=== PATIENT | male | born 1960 | race Caucasian/White ===

== ENCOUNTER 2023-10-04 06:06 | Day surgery (SDC) | payer MEDICARE, BC, OTHER, SELFPAY ==
[2023-10-04] VITALS (31 sets, daily range): BP systolic 92–147; BP diastolic 57–78; PULSE 70–87; RESP 14–20; TEMP 35.9–36.7; O2SAT 88–99; BMI 33.5
[2023-10-04] MEDS: LACTATED RINGERS 1000 ML 1,000 ML 100 ML IV ×2 (05:55→09:15)
--- OUTSIDE RECORDS SUMMARY | 2023-10-04 06:10 | XMS_ITS | Continuity of Care Document ---
Author Name Unknown Organization ASHLY Morrell Address [address] [facility] [address] [place] [address] Phone Care Team Providers Care Care Manager Name Role Phone Unavailable Unavailable Unavailable Allergies, Adverse Reactions, Alerts Substance Reaction Status Criticality CYCLOBENZAPRINE HCL Body Aches Active No Infor mation CYCLOBENZAPRINE HCL Body Aches Active No Infor mation Medications Medication Instructions Dosage Effective Dates (start - stop) Status Comments AMITRIPTYLINE HCL (unknown strength) take 1 Tablet by oral route every day Not Available - Active ibuprofen 200 mg tablet Take 2 tablets by oral route daily as needed - Active Tylenol Extra Strength 500 mg tablet take 2 tablets by oral route daily as needed - Active metaxalone 800 mg tablet take 1 tablet by oral route 3 times every day as needed 800 MG - Active omeprazole 20 mg tablet,delayed release Take 1 tablet by oral route daily - Active Lyrica 150 mg capsule take 1 capsule by oral route 3 times every day 150 MG - Active Celebrex 200 mg capsule take 1 capsule by oral route 2 times every day - Active aspirin 81 mg chewable tablet chew 1 tablet by oral route every day 81 MG - Active Procedures Procedure Date Depomedrol 80mg Marcaine 30ml Intercostal Block Ultrason Guidan Needle Bx-rad 4 Offic/outpt E&m Estab Low-mod 4 Intercostal Block Ultrason Guidan Needle Bx-rad 4 Depomedrol 80mg Marcaine 30ml [place] Only Sterile Any Size 4 QA DONE Offic Cons New/estab Mod-hi 60 14 QA DONE Advance Directives Directive Yes / No Effective Date File Name No Information Encounters Encounter Description Practice Location Reason(s) For Visit Diagnoses Date Provider Providers Copied on Encounter SLOANE Morrell, [address] [facility] [address], [place], [place], [id number], [place] tel:[phone] [facility] No Information 4 No Information Referring Provider: José Miguel Perry, [address], [place], [address]. tel:[phone] SLOANE Morrell, [address] [facility] [address], [place], [address], [place] tel:[phone] [facility] No Information 4 Emma Canales. [address] [place], [address], [place]. tel:[phone] Referring Provider: José Miguel Perry, [address], [place], [address]. tel:[phone] Offic/outpt E&m Estab Low-mod SLOANE Morrell, [address] [facility] [address], [place], [place], [address], [place] tel:[phone] [facility] No Information 4 Jose Garcia. [address] [facility] [address], [place], [place], [address], [place]. tel:[phone] Referring Provider: José Miguel Perry, [address], [place], [address]. tel:[phone] SLOANE Morrell, [address] [facility] [address], [place], [address], [place] tel:[phone] [facility] No Information 4 Feliciano Beaver. [address] [facility], [place], [place], [address], [place]. tel:[phone] Referring Provider: José Miguel Peryr, [address], [place], [address]. tel:[phone] [facility], [address] [facility] [address], [place], [place], [address], [place] tel:[phone] [facility] No Information 4 Emma Canales. [address] [place], [address], [place]. tel:[phone] Referring Provider: José Miguel Perry, [address], [place], [address]. tel:[phone] Offic Cons New/estab Mod-hi 60 [facility], [facility], [address] [facility] [address], [place], [place], [address], [place] tel:[phone] [facility] No Information 4 Jose Garcia. [address] [facility] [address], [place], [address], [place]. tel:[phone] Referring Provider: José Miguel Perry, [address], [place], [address]. tel:[phone] Family History Family Member Type Diagnosis Age At Onset No Information Payers Payer name Insurance type Covered libertarian ID Authorpreston baum(s) [facility] [id number] Social History Type Description Quantity Date Captured Comments Sex Male Smoking Status No Information Chief Complaint And Reason For Visit No Information Reason For Referral Reason For Referral No Information History Of Present Illness Encounter Date Complaint History Of Prese nt Illness No Information Functional Status Date Functional Assessmen t No Information Instructions Date Instruction Additional Infor mation No Information Assessments Type Assessment Date No Information Patient Care Teams Name Effective Dates (start - stop) Status Members No Information
--- OUTSIDE RECORDS SUMMARY | 2023-10-04 06:10 | XMS_ITS | Continuity of Care Document ---
Author Name Unknown Organization [facility] Address [address] [place] [address] Phone Care Team Providers Care Auto Apprentice Mechanic Name Role Phone John Khan MD Unavailable Unavailable Allergies, Adverse Reactions, Alerts Substance Reaction Status Criticality carbamazepine Skin rash Active No Information celecoxib Active No Information CYCLOBENZAPRINE HCL hyperactive Active No Infor mation Medications Medication Instructions Dosage Effective Dates (start - stop) Status Comments BUDESONIDE-FORMOTEROL FUMARATE (unknown strength) Not Available - Active CYMBALTA (unknown strength) Not Available - Active AMLODIPINE BESYLATE (unknown strength) Not Available - Active ASPIRIN EC (unknown strength) Not Available - Active ATORVASTATIN CALCIUM (unknown strength) Not Available - Active LISINOPRIL (unknown strength) Not Available - Active METAXALONE (unknown strength) Not Available - Active OMEPRAZOLE (unknown strength) Not Available - Active LYRICA (unknown strength) Not Available - Active Procedures Procedure Date Office/Outpatient Visit,Est, Mod 2021 Office/Outpatient Visit,Est, Mod 2020 X-Ray Exam Lower Spine 2-3 Views 2020 OFFICE/OUTPATIENT VISIT EST Phone Office/Outpatient Visit,Est, Mod 2020 X-Ray Exam Lower Spine 2-3 Views 2020 Office/Outpatient Visit,Est, Mod 2020 X-Ray Exam Lower Spine 2-3 Views 2020 Postop Followup Visit X-Ray Exam Lower Spine 2-3 Views 2020 Postop Followup Visit X-Ray Exam Lower Spine 2-3 Views 2020 TLIF - Includes PSF at the same level - PA TLIF - Additional Level(s) Includes PSF at the same level - PA Posterior Instrumentation, 3-6 Segments - PA PEEK/ Cage/ Implant, For Interbody Fusio n - PA TLIF - Includes PSF at the same level De TLIF - Additional Level(s) Includes PSF at the same level Posterior Instrumentation, 3-6 Segments PEEK/ Cage/ Implant, For Interbody Fusio n Autograft, From Same Incision 0 Allograft, Morcelized, and/or BMP Office/Outpatient Visit,Est, Mod 2019 Office/Outpatient Visit,Est, Mod 2018 Office/Outpatient Visit,New, Mod 2018 X-Ray Exam Of Neck Spine, 4+ Views Advance Directives Directive Yes / No Effective Date File Name No Information Encounters Encounter Description Practice Location Reason(s) For Visit Diagnoses Date Provider Providers Copied on Encounter [facility], [address], [facility] [place] [place], [id number], [place] tel:[phone] [facility] No Information 3 Bill Rowell [facility] [place], [address] [place] [address] [address], [place], [place], [address] , [place]. [phone] Office/Outpat ient Visit,Est, Mod [facility], [address], [facility] [place], [id number], [place] tel:[phone] [facility] Arthrodesis status 2 Bill Rowell [facility], [address] [place] [address] [address], [place], [place], [address] , [place]. [phone] Referring Provider: John Khan, [facility] [address], [place], [address] . tel:[phone] Office/Outpat ient Visit,Est, Mod [facility], [address], [place], [address], [place] tel:[phone] [facility] Arthrodesis status 1 Mehbod DianerKassandra [facility] [place], [address], [place], [address] , [place]. tel:[phone] Referring Provider: John Khan, [facility] [address], [place], [address] . tel:[phone] OFFICE/OUTPAT IENT VISIT EST Phone [facility], [address], [place], [address], [place] tel:[phone] [facility] [place] No Information Jan- 1 Daron Panchal. [address] [place] [address] [address], [place], [address] , [place]. tel:[phone] Referring Provider: John Khan, [facility] [address], [place], [address] . tel:[phone] Office/Outpat ient Visit,Est, Mod [facility], [address], [place], [address], [place] tel:[phone] [facility] [place] Arthrodesis status 1 Mehbod [facility], [address], [place], [address] , [place]. tel:[phone] Referring Provider: John Khan, [facility] [place] [address], [place], [address] . tel:[phone] Office/Outpat ient Visit,Est, Mod [facility], [address], [place], [address], [place] tel:[phone] [facility] Encounter for other specified surgical aftercare 1 Mehbod [facility], [address], [place], [address] , [place]. tel: [phone] Referring Provider: John Khan, [facility] [address], [place], [address] . tel:[phone] [facility], [address], [place], [address], [place] tel:[phone] [facility] [place] Encounter for other specified surgical aftercare 1 Eckroth Abdulkadir. [address], [place], [place], [address] , [place]. tel: [phone] Referring Provider: John Khan, [facility] [address], [place], [address] . tel:[phone] [facility], [address], [place], [address], [place] tel:[phone] [facility] [place] Encounter for other specified surgical aftercare 1 Bill Rowell [facility], [address], [place], [address] , [place]. tel: [phone] Referring Provider: John Khan, [facility] [address], [place], [address] . tel:[phone] [facility], [address], [place], [address], [place] tel:[phone] [facility] No Information 0 Eckroth Abdulkadir. [address], [place], [address] , [place]. tel: [phone] Referring Provider: John Khan [facility] [address], [place], [address] . tel:[phone] [facility], [address], [place], [address], [place] tel:[phone] [facility] No Information Dec-0 8-202 0 Mehbod Amir. [facility], [address], [facility] [place], [address] , [place]. [phone] Referring Provider: John Khan, [facility] [address], [place], [address] . tel:[phone] Office/Outpat ient Visit,Est, Mod [facility], [address], [place], [address], [place] tel:[phone] [facility] Spinal stenosis, lumbar region with neurogenic claudicationS pondylolisthe sis, lumbar region Sep-1 0-202 0 Mehbod Amir. [facility], [address], [facility], [address] , [place]. tel:[phone] Referring Provider: John Khan, [facility] [address], [place], [address] . tel:[phone] Office/Outpat ient Visit,Est, Mod [facility], [address], [place], [address], [place] tel:[phone] [facility] Spondylolisth esis, lumbar regionSpinal stenosis, lumbar region NOS Sep-1 6-201 9 Mehbod Amir. [facility], [address], [facility] [place], [address] , [place]. [phone] Referring Provider: John Khan, [facility] [address], [place], [address] . tel:[phone] Office/Outpat ient Visit,New, Mod [facility], [address], [place], [address], [place] tel:[phone] [facility] Radiculopathy , cervical region Apr-0 1-201 9 Mehbod Amir. [facility], [address] [place] [address] [address], [place], [place], [address] , [place]. tel:[phone] Referring Provider: José Miguel Perry, [address] [place], [place], [address]. tel:[phone] Family History Family Member Type Diagnosis Age At Onset No Information Payers Payer name Insurance type Covered green party ID Authorpreston baum(s) [facility] [id number] [place] [id number] Social History Type Description Quantity Date Captured Comments Sex Male Smoking Status No Information Chief Complaint And Reason For Visit No Information Reason For Referral Reason For Referral No Information Plan Of Treatment Date Type Action Status Future Order: Radiology Order Ce rvical 4 Or 5 Views (CMIN4), Ordered on: Ordered History Of Present Illness Encounter Date Complaint History Of Prese nt Illness No Information Functional Status Date Functional Assessmen t No Information Instructions Date Instruction Additional Infor mation No Information Assessments Type Assessment Date No Information Patient Care Teams Name Effective Dates (start - stop) Status Members No Information
--- OUTSIDE RECORDS SUMMARY | 2023-10-04 06:10 | XMS_ITS | Encounter Summary ---
Author Name Unknown Organization [facility] Address [address] [place] [address] Care Team Providers Care Terminal Worker Name Role Phone Nancy Zhao APRN MARKETING STRATEGY ANALYST Unavailable [phone] Yuan Veras MD Unavailable Jovani Thorne DO Primary Care Provider [phone] Michael Soto MD Unavailable Yuan Veras MD Unavailable Encounter Details Date Type Department Care Team (Late st Contact Info) Description 03/22/2023 [facility] Medical Advice [facility] Verification [facility] Social History Tobacco Use Types Packs/Day Years Used Date Smoking Tobacco: Never Smokeless Tobacco: Never Alcohol Use Standard Drinks/Week Comments Never 0 (1 standard drink = 0.6 oz pur e alcohol) PHQ-2 Answer Date Recorded PHQ-2 Score 1 11/15/2022 Adolescent Education Answer Date Record ed Getting School Help Needed Not on file 02/10 Sex and Gender Information Value Date Recorded Sex Assigned at Not on file Gender Identity Not on file Sexual Orientation Not on file COVID-19 Exposure Response Date Recorded In the last 10 days, have yo u been in contact with someone who was confirmed or suspected to have Coronavirus/COVID-19? No / Unsure 02/21/2023 11:15 AM CDT documented as of this encounter Plan of Treatment Not on file documented as of this encounter Visit Diagnoses Not on filedocumented in this encounter Care Teams Terminal Worker Relationship Specialty Start Date End Date [place] [address] PCP - General 11/15/22 Nancy Zhao APRN MARKETING STRATEGY ANALYST [facility] NE[facility]OLOG[facility] [place] [address] Referring Physician 06/14/22 Yuan Veras MD [address] [place] [address] Neurology 06/14/22 Michael Soto MD [address] [place] [address] Assigned Neuroscience Provider 02/24/23 05/04/23 Yuan Veras MD [address] [place] [address] Assigned Neuroscience Provider 05/05/23 documented as of this encounter
--- OUTSIDE RECORDS SUMMARY | 2023-10-04 06:10 | XMS_ITS | Referral Summary ---
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) Celecoxib Other (See Comments) Medium 01/29/2020 Elevated creatinine Medications Medication Sig Dispensed Refills Start Date End Date Status Respiratory Therapy Supplies (CARETOUCH 2 CPAP [employer]) [facility] CPAP machine for home use at pressure 6.4-9cm/H2O, nasal pillow mask x1/3month with nasal pillows x 2/mo 06/02/2022 Active amLODIPine (NORVASC) 5 MG tablet Take 1 tablet by mouth daily 06/22/2022 Active atorvastatin (LIPITOR) 40 MG tablet Take 1 tablet by mouth daily 11/08/2021 Active DULoxetine (CYMBALTA) 60 MG capsule 12/23/2021 Active fluticasone (FLONASE) 50 MCG/ACT nasal spray [place] 2 sprays in nostril as needed 10/30/2022 Active lisinopril (ZESTRIL) 20 MG tablet Take 1 tablet by mouth daily 06/22/2022 Active metaxalone (SKELAXIN) 800 MG tablet Take 800 mg by mouth 06/16/2022 Active omeprazole (PRILOSEC) [address] capsule Take 20 mg by mouth 06/05/2022 Active pregabalin (LYRICA) 150 MG capsule Take 150 mg by mouth 06/02/2022 Active multivitamin (CENTRUM SILVER) tablet Take 1 tablet by mouth daily Active ASPIRIN 81 PO Take 81 mg by mouth daily Active tiotropium (SPIRIVA) 18 MCG inhaled capsule Inhale 18 mcg into the lungs 04/05/2023 Active albuterol (PROAIR HFA/PROVENTIL HFA/VENTOLIN HFA) 108 (90 Base) MCG/ACT inhaler Inhale 1-2 puffs into the lungs 03/27/2023 Active Social History Tobacco Use Types Packs/Day Years Used Date Smoking Tobacco: Never Smokeless Tobacco: Never Tobacco Cessation:Counseling Given: Not Answered Alcohol Use Standard Drinks/Week Comments Never 0 (1 standard drink = 0.6 oz pur e alcohol) PHQ-2 Answer Date Recorded PHQ-2 Score 1 11/15/2022 Adolescent Education Answer Date Record ed Getting School Help Needed Not on file 02/10 Sex and Gender Information Value Date Recorded Sex Assigned at Not on file Gender Identity Not on file Sexual Orientation Not on file Last Filed Vital Signs Vital Sign Reading Time Taken Comments Blood Pressure 125/82 05/02/2023 11:22 AM TEST FIXTURE ASSEMBLER Pulse 90 05/02/2023 11:22 AM TEST FIXTURE ASSEMBLER Temperature - - Respiratory Rate - - Oxygen Saturation 91% 05/02/2023 11:22 AM TEST FIXTURE ASSEMBLER Inhaled Oxygen Concentration - - Weight 104.3 kg (230 lb) 05/02/2023 11:22 AM TEST FIXTURE ASSEMBLER Height 177.8 cm (5' 10) 11/15/2022 8:58 AM CDT Body Mass Index 33 11/15/2022 8:58 AM CDT Plan of Treatment Not on file Care Teams Marine Mechanic Relationship Specialty Start Date End Date Jovani Thorne DO [facility] [place] [address] PCP - General 11/15/22 Nancy Zhao, MAGNETIC GRINDER OPERATOR EYEGLASS FRAME TRUER [facility] [address] [place] [address] Referring Physician 06/14/22 Yuan Veras MD [address] [address] Neurology 06/14/22 Yuan Veras MD [address] [address] Assigned Neuroscience Provider 05/05/23
--- OUTSIDE RECORDS SUMMARY | 2023-10-04 06:10 | XMS_ITS | Clinical Summary ---
Author Name Unknown Organization [employer] [facility] Address [place], [place] [address] Care Team Providers Care Data Power Consultant Name Role Phone Jovani Thorne DO Primary Care Provider [phone] Allergies Active Allergy Reactions Criticality Noted Date Comments Celecoxib Other - Describe In Comment Field Medium 01/29/2020 Elevated creatinine Cyclobenzaprine Behavioral Disturbances,Other - Describe In Comment Field 03/06/2008 Budesonide-Formoterol Bronchospasm 05/09/2022 Carbamazepine Rash 10/27/2021 DRESS syndrome (drug reaction with eosinophils and systemic symptoms) Medications Medication Sig Dispensed Refills Start Date End Date Status aspirin (ECOTRIN) 81 mg enteric coated tabletIndications:H ypertensive pulmonary arterial disease (HC) Take 1 Tablet (81 mg) by mouth once daily. 0 1 Active albuterol HFA (ProAir HFA) 90 mcg/actuation inhalerIndications: Bronchitis with bronchospasm Inhale 1-2 Puffs by mouth every 6 hours if needed for Shortness of Breath 1st choice. 1 Each 3 Active CPAPIndications:Obs tructive sleep apnea CPAP machine for home use at pressure 6.4-10cm/H2O, nasal pillow mask x1/3month with nasal pillows x 2/mo 1 Each 3 Active DULoxetine (CYMBALTA) 30 mg Delayed-release capsuleIndications: Depression, recurrent (HC) Take 3 Capsules (90 mg) by mouth once daily. 270 Capsule 3 4 Active omeprazole (PRILOSEC) 20 mg Delayed-Release capsuleIndications: NUD (nonulcer dyspepsia) Take 1 Capsule (20 mg) by mouth two times daily before meals. 180 Capsule 3 4 Active tiotropium-olodater oL (STIOLTO RESPIMAT) 2.5-2.5 mcg/actuation inhalerIndications: COPD mixed type (HC) Inhale 2 Puffs by mouth once daily. 12 g 3 4 Active lisinopriL (PRINIVIL; ZESTRIL) 20 mg tabletIndications:E ssential hypertension,Hypert ensive pulmonary arterial disease (HC) TAKE 1 TABLET BY MOUTH DAILY 90 Tablet 2 4 Active Metaxalone (SKELAXIN) 800 mg tabletIndications:P ain in scapula,Rib pain TAKE 1 TABLET(800 MG) BY MOUTH THREE TIMES DAILY 270 Tablet 4 Active pregabalin (LYRICA) 150 mg capsuleIndications: Rib pain TAKE 1 CAPSULE(150 MG) BY MOUTH THREE TIMES DAILY 90 Capsule 4 Active cholecalciferol, Vitamin D3, 5,000 unit tab tabletIndications:V itamin D deficiency TAKE 1 TABLET BY MOUTH EVERY DAY 90 Tablet 2 4 Active amLODIPine (NORVASC) 5 mg tabletIndications:E ssential hypertension,Hypert ensive pulmonary arterial disease (HC) TAKE 1 TABLET BY MOUTH EVERY DAY 90 Tablet 2 4 Active atorvastatin (LIPITOR) 40 mg tabletIndications:H yperlipidemia, unspecified hyperlipidemia type TAKE 1 TABLET(40 MG) BY MOUTH EVERY DAY 90 Tablet 3 4 Active atorvastatin (LIPITOR) 40 mg tabletIndications:H yperlipidemia, unspecified hyperlipidemia type TAKE 1 TABLET(40 MG) BY MOUTH EVERY DAY 90 Tablet 2 3 09/27/19 24 Discontinued amLODIPine (NORVASC) 5 mg tabletIndications:E ssential hypertension,Hypert ensive pulmonary arterial disease (HC) TAKE 1 TABLET BY MOUTH EVERY DAY 90 Tablet 2 3 09/11/19 24 Discontinued cholecalciferol, Vitamin D3, (Vitamin D-3) 5,000 unit tab tabletIndications:V itamin D deficiency Take 1 Tablet (5,000 units) by mouth once daily. 90 Tablet 4 09/06/19 24 Discontinued pregabalin (LYRICA) 150 mg capsuleIndications: Rib pain TAKE 1 CAPSULE(150 MG) BY MOUTH THREE TIMES DAILY 90 Capsule 4 09/06/19 24 Discontinued Active Problems Problem Noted Date Diagnosed Date Depression, recurrent 02/02/2023 Vocal cord disease 10/26/2022 COPD mixed type 07/24/2022 DRESS syndrome 11/23/2021 Drug reaction 11/08/2021 Neuropathic pain 11/01/2021 Calcaneal fracture 10/20/2021 Spinal stenosis of lumbar re gion without neurogenic claudication 04/27/2020 DDD (degenerative disc disease), lumbar 04/01/20 Prediabetes 12/31/2019 Chronic left shoulder pain 12/31/2019 Right ventricular dilation 09/16/2019 Essential hypertension 07/01/2018 Essential tremor 04/03/2018 Overview: Per neurology-01/29/2018 Worsened due to his accident from 2006. 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 Encounters Date Type Department Care Team Description 09/26/[address] [address] Jovani Thorne DO Refill Request (Atorvastatin) 09/24/2023 11:00 AM CDT Preop Visit [address] [address] Jovani Thorne DO Preoperative Exam (Dr[facility] - 10/04/2023 - Hip LEFT total) 09/24/2023 Travel 09/22/2023 Travel 09/11/[address] [address] Jovani Thorne DO Refill Request (Amlodipine) 09/05/[address] [address] Dominique Thorne Josy, Refill Request (Cholecalciferol (Vitamin D3)) 09/05/[address] [address] Jovani Thorne DO Refill Request (Pregabalin) 08/10/[address] [address] Jovani Thorne DO Refill Request (Metaxalone) 07/26/[address] [address] Michelle Wayne PA Refill Request (Pregabalin) 07/26/[address] [address] José Miguel Blanco MD Results (Femur X-ray ) 07/25/2023 10:00 AM CONSTRUCTION DRIVER Ancillary Procedure [address] [address] 07/25/2023 9:25 AM CONSTRUCTION DRIVER Procedure Only [facility] [address] [place] [address] [address] José Miguel Blanco MD Procedure (WC ultrasound guided injection ... 07/25/[address] [facility] [address] [place] [address] [address] José Miguel Blanco MD <No scans attached> 07/24/2023 Travel 07/20/2023 10:00 AM CONSTRUCTION DRIVER Pharmacist Medication Management [facility] [address] [place] [address] Makayla Jaeger, Maya Pharmacist Medication Management (CMR follow-up - provider referral - inhaler options) 07/19/2023 Travel from Last 3 Months Immunizations Name Administration Dates Next Due COVID-19 vaccine (Smart Checkout-Bio NTech 30mcg/0.3mL) 12YO+ BIVALENT PF, MDV 05/26/2022 COVID-19 vaccine (Smart Checkout-Bio NTech 30mcg/0.3mL) PF, MDV 09/07/2020,08/17/2020 Influenza, IIV3 (Age >=3 years) 02/19/2020,02/14,02/23/2010 Influenza, IIV4 03/23/2023,02/01/2021,04/07/2014 Influenza, IIV4 (=>6mos) MDV 03/06/2020 Influenza,CCIIV4 PRESERV FREE 02/23/2022 Pneumococcal Conj 20-valent (Prevnar 20) 023 RSV, Bivalent Vaccine Recons tituted (Abrysvo 120MCG/0.5mL) 04/19/2023 Td (Age >=7 Years) 05/27/2002 Tdap 04/07/2014 Zoster (Shingrix-RZV, recombinant) 09/11/2018, Family History Medical History Relation Name Comments Cancer Brother 2 lung - non smok er Cancer-prostate Father Diabetes Father Other Father at 84 - pr obable flu Other Mother CVA at 82 Relation Name Status Comments Brother 1 Brother 2 Father Mother Social History Tobacco Use Types Packs/Day Years Used Date Smoking Tobacco: Never Smokeless Tobacco: Never Tobacco Cessation:Counseling Given: Yes Alcohol Use Standard Drinks/Week Comments Not Currently 0 (1 standard drink = 0.6 oz pur e alcohol) none PHQ-2 Answer Date Recorded PHQ-2 TOTAL SCORE 0 06/12/2023 Social Connections Answer Date Recorded Frequency of Communication with Friends and Fami ly 0 05/10/2023 Financial Resource Strain Answer Date R ecorded Difficulty of Paying Living Expenses 3 05/10/2023 Difficulty of Paying Living Expenses Not on file 05/10/2023 Food Insecurity Answer Date Recorded Worried About Running Out of Food in the Last Ye ar 1 05/10/2023 Transportation Needs Answer Date Record ed Lack of Transportation (Medical) 1 05/10/2023 Housing Stability Answer Date Recorded Unable to Pay for Housing in the Last Year 1 05/10/2023 Sex and Gender Information Value Date Recorded Sex Assigned at Not on file Gender Identity Not on file Sexual Orientation Not on file Obstetrics History Last Filed Vital Signs Vital Sign Reading Time Taken Comments Blood Pressure 124/71 09/24/2023 11:06 AM CDT Pulse 82 09/24/2023 11:06 AM CDT Temperature 36.7 ??C (98.1 ??F) 07/25/2023 9:23 AM CS T Respiratory Rate 20 05/03/2022 1:00 PM CONSTRUCTION DRIVER Oxygen Saturation 94% 09/24/2023 11: 06 AM CDT Inhaled Oxygen Concentration - - Weight 106.4 kg (234 lb 9.6 oz) 024 11:06 AM CDT Height 175.3 cm (5' 9) 06/05/2023 7:42 AM CONSTRUCTION DRIVER Body Mass Index 34.64 06/05/2023 7:42 AM CONSTRUCTION DRIVER Plan of Treatment Health Maintenance Due Date Last Done Comments Influenza for age 50-64 01/20/2024 03/23/20, 02/23/2022, 02/01/2021, Additional history exists Tetanus booster 04/07/2024 04/07/2014, 05/27/2002 BMI (ht and wt on same day) for age 18+ 06/05/2024 06/05/2023, 11/02/2022, 10/26/2022, Additional history exists Depression screening for age 12+ 06/13/2024 06/13/2023, 06/12/2023, 06/08/2023, Additional history exists Colonoscopy through age 75 09/09/202509/09, 09/10/2015, 04/09/2015 Lipids for age 45-75 10/27/2027 10/26/2022, 11/08/2021, 09/09/2020, Additional history exists Tdap Completed 04/07/2014 Zoster (shingles) series for age 50+ Completed 09/11/2018, 07/01/2018 HIV for age 15-65 Completed 10/25/2021 Hepatitis C screening for ag e 18-79 Completed 10/28/2021, 07/08/2014 Pneumococcal series for age 6-64 Completed 10/27/19 COVID-19 vaccine series Completed 05/27/19, 05/26/2022, 02/23/2022, Additional history exists Medical Devices Implanted Type Area Embedder Device Identifier Shelf Expiration Date Model / Serial / Lot [id number] 1-4mm 60cc Medtronic Fine Canclls Freeze Dried Implanted:Qty: 1 on 04/27/2020 by John Khan MD at [facility] Explanted:at [facility] (Quantity not on file) N/A: Spine Medtronic Spine/Ortho 07/14/2024 [id number] / [id number] / [id number] Matrix 6cc Nazia Dbf Putty Dbm Implanted:Qty: 1 on 04/27/2020 by John Khan MD at [facility] Explanted:at [facility] (Quantity not on file) N/A: Spine Medtronic Spine/Ortho 02/15/2022 [id number] / [id number] / Spacer Lmbr [id number] Zyston Convex Stra Plif - [id number] Implanted:Qty: 1 on 04/27/2020 by John Khan MD at [facility] N/A: Spine Sussy Biomet [id number]# / / [id number] Spacer Lmbr [id number] Zyston Convex Stra Plif - [id number] Implanted:Qty: 1 on 04/27/2020 by John Khan MD at [facility] N/A: Spine Sussy Biomet 11/20/2022 [id number] / / [id number] Screw Lmbr 5.5-6mm Vitality Torque - [id number] Implanted:Qty: 6 on 04/27/2020 by John Khan MD at [facility] N/A: Spine Sussy Biomet Spine [id number] 01# / / Neeraj Lmbr 75x5.5mm Vitality Cvd Titnm - [id number] Implanted:Qty: 1 on 04/27/2020 by John Khna MD at [facility] N/A: Spine Sussy Biomet Spine [id number] 12# / / Neeraj Lmbr 80x5.5mm Vitality Cvd Titnm - [id number] Implanted:Qty: 1 on 04/27/2020 by John Khan MD at [facility] N/A: Spine Sussy Biomet Spine [id number] 13# / / Screw Vital Polyaxial 7.5 X 45 Implanted:Qty: 1 on 04/27/2020 by John Khan MD at [facility] N/A: Spine [id number] / / Description:SCREW VITAL POLY AXIAL 7.5 X 45 Screw Vital Polyaxial 7.5 X 50 Implanted:Qty: 5 on 04/27/2020 by John Khan MD at [facility] N/A: Spine [id number] / / Description:SCREW VITAL POLY AXIAL 7.5 X 50 Procedures Procedure Name Priority Date/Time Associated Diagnosis Comments POTASSIUM Routine 09/24/2023 11:25 AM CDT Pre-op evaluation HEMOGLOBIN Routine 09/24/2023 11:25 AM CDT Pre-op evaluation BEDSIDE US STUDY ARCHIVE Routine 07/25/2023 10:19 AM CONSTRUCTION DRIVER Chronic left shoulder pain Pain in scapula 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 XR FEMUR 2 VIEWS LEFT Routine 07/25/2023 10:16 AM CONSTRUCTION DRIVER Left leg pain LIPID PANEL Routine 10/26/2022 2:57 PM CDT Lipid screening ANTI HCV Routine 10/28/2021 12:28 PM CDT Intermittent fever of unknown origin ANTI HIV 1/2 Add On 10/25/2021 11:58 AM CDT Intermittent fever of unknown origin from Last 3 Months or Most Recently Relevant to Health Maintenance Results * HEMOGLOBIN (09/24/2023 11:25 AM CDT) HEMOGLOBIN 15.2 13.5 - 17.5 g/dL 09/24/2023 11:37 AM CDT [facility] MCV 96 80 - 100 fL 09/24/2023 11:37 AM CDT [facility] Blood BLOOD SPECIMEN / Unknown Venipuncture / Unknown 09/24/2023 11:25 AM CDT 09/24/2023 11:26 AM CDT Jovani Thorne DO HEMATOLOGY [facility] [address] [place] [address], * POTASSIUM (09/24/2023 11:25 AM CDT) POTASSIUM 5.1 3.5 - 5.1 mmol/L 09/24/2023 10:11 PM CDT [facility] Blood BLOOD SPECIMEN / Unknown Venipuncture / Unknown 09/24/2023 11:25 AM CDT 09/24/2023 11:26 AM CDT Jovani Kandumaribel LEHMAN [facility] [address] [place] [address], [place] * BEDSIDE US STUDY ARCHIVE (07/25/2023 10:19 AM CONSTRUCTION DRIVER) Narrative Dayami Sanderson 07/25/2023 10:19 AM CONSTRUCTION DRIVER The patient was seen for ultrasound guided injection by Dr. José Miguel Blanco. Ultrasound was not used for diagnostic purposes, but to guide the needle placement and document the position of the injection. ?? See patient's EPIC encounter for the detail of the procedure; see LAYLA for saved images of the injection. José Miguel Blanco MD PROCEDURE ORD * XR FEMUR 2 VIEWS LEFT (07/25/2023 10:16 AM CONSTRUCTION DRIVER) Anatomical Region Laterality Modality FEMURS, FEMUR L Computed Radiogr aphy 07/25/2023 3:48 PM CONSTRUCTION DRIVER Narrative 07/25/2023 3:48 PM CONSTRUCTION DRIVER For Patients: ??As a result of the Cures Act, medical imaging exams and procedure reports are released immediately into your electronic medical record. ??You may view this report before your referring provider. ??If you have questions, please contact your health care provider. Indication: Left leg pain Technique: Two views left femur Comparison: None Findings: Narrowing and spurring at the left hip joint with [id number] alignment. No fracture. Vascular calcifications. Small densities adjacent to the left proximal femur. Impression: Severe degenerative joint disease left hip. Dictated by Michael Hitchcock MD @ Jul ??2023 ??3:48PM (Electronically Signed) [email or web address] Procedure Note Michael Hitchcock MD - 07/25/2023 For Patients: As a result of the s Act, medical imagingexams and procedure reports are released immediately into your electronicmedical record. You may view this report before your referring provider.If you have questions, please contact your health care provider. Indication: Left leg pain Technique: Two views left femur Comparison: None Findings: Narrowing and spurring at the left hip joint with [id number] alignment.No fracture. Vascular calcifications. Small densities adjacent to the leftproximal femur. Impression: Severe degenerative joint disease left hip. Dictated by Michael Hitchcock MD @ Jul 25 2023 3:48PM (Electronically Signed) [email or web address] José Miguel Blanco MD GENERAL IMAGING * (ABNORMAL) LIPID PANEL (10/26/2022 2:57 PM CDT) CHOLESTEROL,TOTAL 159 100 - 199 mg/dL 10/27/2022 12:44 AM CDT [facility] Comment: Cholesterol, Total Reference Ranges Desirable <200 mg/dL Borderline 200-239 mg/dL High >=240 mg/dL TRIGLYCERIDES 221(H) <150 mg/dL 10/27/2022 12:44 AM CDT [facility] HDL CHOLESTEROL 36(L) >40 mg/dL 12:44 AM CDT [facility] NON-HDL CHOLESTEROL 123 <145 mg/dl 10/27/2022 12:44 AM CDT [facility] CHOL/HDL RATIO 4.42 <4.50 10/27/2022 12:44 AM CDT [facility] LDL CHOLESTEROL 79 <=130 mg/dL 10/27/2022 12:44 AM CDT [facility] VLDL CHOLESTEROL 44(H) <=30 mg/dL 10/27/2022 12:44 AM CDT [facility] PROVIDER ORDERED STATUS RANDOM 10/27/2022 12:44 AM CDT [facility] Blood BLOOD SPECIMEN / Unknown Venipuncture / Unknown 10/26/2022 2:57 PM CDT 10/26/2022 2:57 PM CDT Jovani Thorne DO CHEMISTRY [facility] [address] [place] [address], * ANTI HCV (10/28/2021 12:28 PM CDT) HEPATITIS C ANTIBODY Non-React joy Non-React joy 10/29/2021 3:01 AM CDT [facility] Comment:Antibodies to HCV no t detected; does not exclude the possibility of exposure to HCV. Blood BLOOD SPECIMEN / Unknown Venipuncture / Unknown 10/28/2021 12:28 PM CDT 10/28/2021 12:36 PM CDT Scott Matos MD [facility] [address] [place] [address], * ANTI HIV 1/2 (10/25/2021 11:58 AM CDT) HIV-1/HIV-2 ANTIBODY Non-Reacti ve Non-Reacti ve 10/26/2021 4:22 PM CDT [facility] Comment:HIV-1 p24 and HIV-1/ HIV-2 Ab not detected. Blood BLOOD SPECIMEN / Unknown Venipuncture / Unknown 10/25/2021 11:58 AM CDT 10/25/2021 12:00 PM CDT Scott Matos MD [facility] [address] [place] [address], from Last 3 Months or Most Recently Relevant to Health Maintenance Advance Directives * Full Code (Latest Code Status on File) Date Activated Date Inactivated Comments 04/27/2020 9:12 PM 04/30/2020 2:48 PM Question Answer Comments Code Status Discussion: Not Discussed Care Teams Data Power Consultant Relationship Specialty Start Date End Date Jovani [place] [address] PCP - General Family Practice 02/07/22
--- OUTSIDE RECORDS SUMMARY | 2023-10-04 06:10 | XMS_ITS | Clinical Summary ---
Author Name Unknown Organization [facility] Address [address] [place] [address] Care Team Providers Care Measuring Machine Tender Name Role Phone mario Nancy Almanzar APRN RETURNER Unavailable [phone] Yuan Veras MD Unavailable Jovani Thorne DO Primary Care Provider [phone] Yuan Veras MD Unavailable Allergies Active Allergy Reactions Criticality Noted Date Comments Carbamazepine Rash Low 10/27/2021 DRESS syndrome (drug reaction with eosinophils and systemic symptoms) Celecoxib Other (See Comments) Medium 01/29/2020 Elevated creatinine Medications Medication Sig Dispensed Refills Start Date End Date Status Respiratory Therapy Supplies (CARETOUCH 2 CPAP HOSE RESEARCH AND DEVELOPMENT ENGINEER) [facility] CPAP machine for home use at pressure 6.4-9cm/H2O, nasal pillow mask x1/3month with nasal pillows x 2/mo 06/02/2022 Active amLODIPine (NORVASC) 5 MG tablet Take 1 tablet by mouth daily 06/22/2022 Active atorvastatin (LIPITOR) 40 MG tablet Take 1 tablet by mouth daily 11/08/2021 Active DULoxetine (CYMBALTA) 60 MG capsule 12/23/2021 Active fluticasone (FLONASE) 50 MCG/ACT nasal spray Sellers 2 sprays in nostril as needed 10/30/2022 [...] Comments Blood Pressure 125/82 05/02/2023 11:22 AM DYE STAND LOADER Pulse 90 05/02/2023 11:22 AM DYE STAND LOADER Temperature - - Respiratory Rate - - Oxygen Saturation 91% 05/02/2023 11:22 AM DYE STAND LOADER Inhaled Oxygen Concentration - - Weight 104.3 kg (230 lb) 05/02/2023 11:22 AM DYE STAND LOADER Height 177.8 cm (5' 10) 11/15/2022 8:58 AM CDT Body Mass Index 33 11/15/2022 8:58 AM CDT Plan of Treatment Health Maintenance Due Date Last Done Comments ADVANCE CARE PLANNING 1960 ANNUAL REVIEW OF HM ORDERS 1959 CT COLONOGRAPHY 1959 FIT 1959 FLEX SIG 1960 GLUCOSE 1959 LIPID 1959 sDNA (Cologuard) 1960 COLONOSCOPY 09/27/1969 COLORECTAL CANCER SCREENING 09/27/1969 HIV SCREENING 09/27/1974 HEPATITIS C SCREENING 09/27/1977 RSV VACCINE ( & 60+) (1 - 1-dose 60+ series) 2019 COVID-19 Vaccine (2022- season) 2023 02/23/2022, 03/24/2021, 09/07/2020, Additional history exists PHQ-2 (once per calendar year) 2023 11/15/2022 MEDICARE ANNUAL WELLNESS VISIT 10/27/2023 10/26/2022 DTAP/TDAP/TD IMMUNIZATION (2 - Td or Tdap) 04/07/2024 04/07/2014, 05/27/2002 ZOSTER IMMUNIZATION Completed 09/11/2018, 9 Pneumococcal Vaccine: Pediatrics (0 to 5 Years) and At-Risk Patients (6 to 64 Years) Aged Out 10/26/2022 No longer eligible based on patient's age to complete this topic INFLUENZA VACCINE Completed 03/23/2023, , 02/01/2021, Additional history exists HPV IMMUNIZATION Aged Out No longer e ligible based on patient's age to complete this topic IPV IMMUNIZATION Aged Out No longer e ligible based on patient's age to complete this topic MENINGITIS IMMUNIZATION Aged Out No l onger eligible based on patient's age to complete this topic RSV MONOCLONAL ANTIBODY Aged Out No l onger eligible based on patient's age to complete this topic Care Teams Measuring Machine Tender Relationship Specialty Start Date End Date Jovani Thorne DO [address] [place] [address] PCP - General 11/15/22 Nancy Zhao, SALES AND MARKETING DIRECTOR RETURNER [facility] [address] [place] [address] Referring Physician 06/14/22 Yuan Veras MD [address] [place] [id number] Neurology 06/14/22 Yuan Veras MD [address] [place] [id number] Assigned Neuroscience Provider 05/05/23
[2023-10-04] MEDS: ACETAMINOPHEN 500 MG TABLET 1000 MG PO ×3 (06:26→21:04)
[2023-10-04] MEDS: OXYCODONE (CR) 10 MG TAB.ER.12H PO (06:27)
[2023-10-04] MEDS: SODIUM CHLORIDE 0.9 % (FLUSH) 10 ML SYRINGE IVF (06:27)
--- NOTE | 2023-10-04 07:01 | SUR.PREOP ---
TIME?OUT:?07 PT/RN/MDA?VERIFICATION?OF?SURGICAL?SITE Left Hip,?PROCEDURE Nerve Block,?AND?CONSENT OBTAINED?PRIOR?TO?INVASIVE?PROCEDURE.
[2023-10-04] MEDS: MIDAZOLAM HCL 1 MG/ML inj IVP (07:11)
[2023-10-04] MEDS: fentaNYL 100 MCG/2 ML inj IVP (07:11)
[2023-10-04] MEDS: CEFAZOLIN 2 GM INJ IVP (07:15)
--- NOTE | 2023-10-04 07:15 | XR_ITS ---
Patient: AMELIA MANCERA Facility:?[facility] Patient ID:?[id number] Site Patient ID:?[id number]. Site :?[id number] Study:?XRay-Hip Left TOTAL HIP, AA-10/04/2023 9:20:19 AM Ordering Physician:XUAN Final Report: Indication: Hip replacement surgery Technique: AP hip fluoroscopic images. Fluoroscopy time 81.4 seconds. Findings/Impression: Hardware from a left total hip arthroplasty is in satisfactory position. Dictated by Michael Hitchcock MD @ 10/04/2023 12:12:29 PM Signed by:?Michael Hitchcock MD @10/04/2023 12:12:29 PM (Electronic Signature)
[2023-10-04] MEDS: TRANEXAMIC ACID 100 MG/ML INJ 1000 MG IV (07:20)
--- NOTE | 2023-10-04 09:07 | XR_ITS ---
Patient: AMELIA MANCERA Facility:?[facility] Patient ID:?[id number] Site Patient ID:?[id number]. Site :?[id number] Study:?XRay-Hip Left 2 VIEW POSTOP-10/04/2023 10:10:44 AM Ordering Physician:XUAN Final Report: Indication: Postop Technique: AP hip centered pelvis and lateral view left hip Findings/Impression: Hardware from a left total hip arthroplasty is in satisfactory position. Bone alignment is normal. No sign of acute fracture. Postop changes are within normal limits. Dictated by Michael Hitchcock MD @ 10/04/2023 12:21:32 PM Signed by:?Michael Hitchcock MD @10/04/2023 12:21:32 PM (Electronic Signature)
--- NOTE | 2023-10-04 09:08 | P.ORPRC_ITS ---
Procedure Note Date of procedure: 10/04/23 Procedure: PREOPERATIVE DIAGNOSIS: Left hip osteoarthritis POSTOPERATIVE DIAGNOSIS: Left hip osteoarthritis NAME OF OPERATION: Left total hip arthroplasty SURGEON: Luiz Arvizu MD FAMILY HELPER: Noemí Singh PA-C, AMBER Goodwin IMPLANTS: 1. [employer] [place] # 58 sector ingrowth cup 2. 36 x 58 +4 neutral polyethylene 3. Actis # 8 high offset collared ingrowth stem 4. 36 + 8.5 ceramic femoral head ANESTHESIA: General ESTIMATED BLOOD LOSS: 500 cc COMPLICATIONS: None SPECIMENS: None DRAINS: None PREOPERATIVE ANTIBIOTICS: Ancef 2 grams INDICATIONS: The patient is a 63-year-old with a longstanding history of severe, unrelenting left hip pain secondary to end-stage left hip osteoarthritis. Despite appropriate nonoperative management, including activity modification, use of an assist device, anti-inflammatories, [id number] pain medication, physical therapy and injections, they continue to have pain and disability. Operative intervention was offered. The risks, benefits and expected outcomes were discussed in detail. These included but were not limited to: Infection, bleeding, injury to blood vessel or nerve, venous thromboembolism. All questions were answered to their satisfaction. Use of an residential living assistant was necessary throughout the case for patient positioning and safety, soft tissue retraction and closure. PROCEDURE: The patient was placed supine on the [place] table. General anesthesia was administered. The residential living assistant made sure the patient was properly positioned. The left hip was prepped and draped in the usual sterile fashion. The image intensifier was brought in for a perfect AP pelvis and a perfect double tear drop AP view of each hip which were used for intraoperative templating with our fluoroscopic guide. An oblique incision was made 3 cm distal and 3 cm lateral to the anterior superior iliac spine. The residential living assistant retracted the soft tissues to protect them. Subcutaneous dissection was taken with electrocautery to the superficial fascia. The fascia was divided in line with the incision. Blunt dissection was carried medially to the tensor fascia ketan and sartorius interval. Deep dissection was carried with electrocautery. The circumflex vessels were cauterized and divided. The capsule was exposed and then divided in a T- fashion, tagged with #1 Ethibond sutures. Retractors were placed in the joint, held by the residential living assistant. The corkscrew was placed in the femoral head. The neck cut was made in the subcapital region. We made a second neck cut more distal. The napkin ring of bone was removed. The femoral head was removed intact. Acetabular retractors were placed, held by the residential living assistant. The labrum was sharply debrided. The capsule was released. The 43 mm reamer was used to the true medial wall. We then enlarged in 2 mm increments using the image intensifier for our reamer placement. We impacted the cup which had excellent purchase. We placed the polyethylene. Attention was then turned to the proximal femur. The limb was placed in 140 degrees of external rotation, maximum extension and adduction. A significant amount of time was spent releasing the capsule to allow us to deliver the femur into the wound and complete the femoral side safely. Retractors were held by the residential living assistant throughout the femoral preparation. The boxing and pressing supervisor and canal finder were used. Broaches were used to a stable size. The calcar reamer was u sed. Trial components were placed. The hip was reduced and was found to be stable with appropriate soft tissue tension. Length and offset had been nicely restored using the image intensifier and our fluoroscopic guide. Trial components were removed. The stem was impacted. We placed the femoral head. Again, the hip was reduced and was found to be stable with appropriate soft tissue tension. Length and offset had been nicely restored. The residential living assistant did a three minute dilute Betadine solution soak. The residential living assistant irrigated the wound with 3 liters of normal saline via pulse lavage. The residential living assistant repaired the anterior capsule with a #1 Vicryl and our previously placed Ethibond sutures. The residential living assistant closed the fascia over the tensor fascia ketan with a #1 PDO Stratafix, subcutaneous tissues with 2-0 Vicryl, skin with a running 3-0 Stratafix and glue. A dry dressing was applied by the residential living assistant. Sponge and needle counts were correct x 2. The patient tolerated the procedure well; there were no apparent complications. They were awakened and extubated in the operating room, sent to the Post-Anesthesia Care Unit in satisfactory condition. PLAN: 1. The patient will be mobilized with physical therapy, weight-bearing as tolerates 2. Xarelto x 5 days then aspirin x 30 days will be used for DVT prophylaxis 3. The patient will be discharged once medically appropriate
--- NOTE | 2023-10-04 09:58 | W.ANESCHARGE ---
Anesthesia Charges Start Date/Time Anesthesia Start Date: 10/04/23 Anesthesia Start Time: 07:15 Stop Date/Time Anesthesia Stop Date: 10/04/23 Anesthesia Stop Time: 09:55
--- NOTE | 2023-10-04 10:04 | P.NB_ITS ---
Nerve Block Nerve Block Time Seen by Provider: 07:07 Date Seen: 10/04/23 Type of block requested by surgeon for post-operative analgesia: RAINA/LFCN Side: left Time out performed: Yes Verification of patient name: Yes Verification of date of : Yes Site marking: site marked Name of person performing procedure: Javier Continuous monitoring Was continuous monitoring of O2 sat, B/P, radiographer cardiac catheterization, recorded every 15 minutes?: Yes Procedure Checklist: sterile prep, needles and gloves Ultrasound guided. Images saved: Yes Medications given in 5ml increments after negative aspiration: Ropivicaine %: 0.5 mL: 30 Needle gauge: 20 Decadron (mg): 10 Precedex (mcg): 25 Patient tolerated procedure well: Yes Additional comments: Needle noted below psoas tendon needle noted adjacent to LFCN Block Charges Block Charge (with Pro Fee): Other Periph Nerve Block Use of Ultrasound Machine for Block: Yes- US Guidance/pain block
--- NOTE | 2023-10-04 10:04 | W.ANESCHARGE ---
Anesthesia Charges Start Date/Time Anesthesia Start Date: 10/04/23 Anesthesia Start Time: 07:15 Stop Date/Time Anesthesia Stop Date: 10/04/23 Anesthesia Stop Time: 09:55
[2023-10-04] MEDS: fentaNYL 100 MCG/2 ML inj 50 MCG IVP (10:22)
[2023-10-04] MEDS: HYDROmorphone 0.5 mg/0.5 ml inj IVP (10:30)
[2023-10-04] MEDS: hydrOXYzine pamoate 25 MG CAPSULE PO (10:39)
[2023-10-04] MEDS: OXYCODONE 5 MG TABLET PO ×3 (12:27→18:39)
--- NOTE | 2023-10-04 13:36 | SUR.PHASEII ---
unable to work with PT due to low sats/ o2, CPAP
--- NOTE | 2023-10-04 14:16 | SUR.PHASEII ---
Dr. Arvizu visited with Pt before I transferred him to / due to low sats. Pt was able to transfer from bed to w/c with assistance and a walker.
--- NOTE | 2023-10-04 14:56 | PM.IMCN1 ---
Date of Consult Patient: Juanita Patient Consult date: 10/04/23 Requesting Physician: Orthopedics Primary Care Provider: RADHA SHEETS DO Consult Narrative Narrative: Jt Mc is a 63 year old male admitted to the hospital for left hip arthroplasty. Procedure performed by Dr. Arvizu. No operative complications. Estimated blood loss of 500 mL. Initial plan was for him to be discharged from surgery to home. Postoperatively he has been persistently hypoxic. Because this he is admitted for ongoing evaluation management of hypoxia. He is not having any dyspnea, chest pain, fever, cough. He is having some hip pain but otherwise reports feeling well. Patient reports that he was feeling well when he came to the hospital today. He has had no recent illness, especially no respiratory illness. He has had no chest pain or unusual dyspnea. He carries a diagnosis of COPD in his chart. 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 This was apparently diagnosed by his judicial administrative assistant. He had been on carbamazepine for management of chronic pain problems when he developed worsening dyspnea and was referred to pulmonology. Initially did not have a rash with this. He has been treated as a patient with COPD with tiotropium and olodaterol (STIOLOTO) inhaler, 2 puffs at bedtime. He reports this seems to help quite a bit with his breathing. He also uses a p.r.n. albuterol of uncertain benefit. He has no history of smoking or significant smoke ache exposure. 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 No history of asthma. He has obstructive sleep apnea and has been faithfully using his CPAP for many years. He has no known history of heart failure or heart disease. He is not aware of ever having pulmonary emboli or DVT. He has not been on home oxygen. On arrival to the hospital today his initial oxygen saturation on room air was 90%. He had general anesthesia for surgery. He has been on supplemental oxygen at 3-4 L per nasal cannula through the day when he was not intubated. Review of Systems Narrative: Other than his left hip pain patient reports having no other concerning symptoms and specifically no cardia respiratory symptoms [facility] Medical History (Updated 10/04/23 @ 15:18 by Jimmy Velázquez MD) COPD (chronic obstructive pulmonary disease) ?J44.9 - Chronic obstructive pulmonary disease, unspecified (ICD-10) Hypoxia ?R09.02 - Hypoxemia (ICD-10) Spinal stenosis ?M48.00 - Spinal stenosis, site unspecified (ICD-10) Essential tremor ?G25.0 - Essential tremor (ICD-10) HTN (hypertension) ?I10 - Essential (primary) hypertension (ICD-10) CRISSY (obstructive sleep apnea) ?G47.33 - Obstructive sleep apnea (adult) (pediatric) (ICD-10) DRESS syndrome ?D72.12 - Drug rash with eosinophilia and systemic symptoms syndrome (ICD-10) ?T50.905A - Adverse effect of unspecified drugs, medicaments and biological substances, initial encounter (ICD-10) Pre-diabetes ?R73.03 - Prediabetes (ICD-10) Fracture of calcaneus ?S92.009A - Unspecified fracture of unspecified calcaneus, initial encounter for closed fracture (ICD-10) Febrile illness ?R50.9 - Fever, unspecified (ICD-10) Surgical History S/P lumbar fusion ?Z98.1 - Arthrodesis status (ICD-10) History of back surgery ?Z98.890 - Other specified postprocedural states (ICD-10) S/P foot surgery, right ?Z98.890 - Other specified postprocedural states (ICD-10) History of back surgery ?Z98.890 - Other specified postprocedural states (ICD-10) Sebaceous cyst ?L72.3 - Sebaceous cyst (ICD-10) Family History (Updated 10/04/23 @ 15:11 by Jimmy Velázquez MD) Father Prostate cancer Diabetes Mother Stroke Brother Lung cancer Social History (Updated 10/04/23 @ 15:11 by Jimmy Velázquez MD) Narrative: He lives with in [place] with his Teresita. She is healthcare power of state's attorney. Code status is full. He has never smoked. He does not drink alcohol. Smoking Status: Never smoker Do you use any of these nicotine containing products: None Second hand tobacco smoke exposure: No How often do you have a drink containing alcohol: never AUDIT-C Alcohol total score: 0 Non-prescribed substance use: denies use Caffeine: Yes Meds Home Medications and Allergies Home Medications Medication Instructions Recorded Confirmed Type amlodipine 5 mg tablet 5 mg PO QDAY 09/28/22 10/04/23 History aspirin 81 mg tablet,delayed 81 mg PO QDAY 09/28/22 10/04/23 History release (Adult Low Dose Aspirin) atorvastatin 40 mg tablet 40 mg PO QDAY 09/28/22 10/04/23 History lisinopril 20 mg tablet 20 mg PO QDAY 09/28/22 10/04/23 History metaxalone 800 mg tablet 800 mg PO QID 09/28/22 10/04/23 History omeprazole 20 mg capsule,delayed 20 mg PO QDAY 09/28/22 10/04/23 History release pregabalin 150 mg capsule (Lyrica) 150 mg PO QDAY 09/28/22 10/04/23 History albuterol sulfate 90 mcg/actuation 1 - 2 puff inhalation Q6H PRN 08/08/23 10/04/23 History aerosol inhaler dyspnea cholecalciferol (vitamin D3) 125 125 mcg PO DAILY 08/08/23 10/04/23 History mcg (5,000 unit) tablet cpap intranasal 08/08/23 History duloxetine 30 mg capsule,delayed 90 mg PO DAILY 08/08/23 10/04/23 History release tiotropium 2.5 mcg-olodaterol 2.5 2 puff inhalation DAILY 08/08/23 10/04/23 History mcg/actuation mist for inhalation (Stiolto Respimat) Allergies Allergy/AdvReac Type Severity Reaction Status Date / Time celecoxib [From Celebrex] Allergy Severe Rash Verified 10/04/23 06:15 carbamazepine Allergy Unknown dress Verified 10/04/23 06:15 syndrome cyclobenzaprine Allergy Unknown Verified 10/04/23 06:15 [From Flexeril] Exam Narrative: Exam Narrative: He is alert and appears in no distress. He does not have evidence of increased work of breathing. Head is normal. Eyes normal. Oropharynx normal. Neck is supple without mass or adenopathy. No jugular venous distension. Respirations are clear to auscultation. Good air exchange all lung urias. No wheezing rales rhonchi. Cardiovascular: S1, S2, regular rate and rhythm. Very distant heart sounds. Abdomen: Bowel sounds active. Abdomen is soft without tenderness or mass. Left hip incision is bandaged without significant drainage, erythema or bruising. Lower extremities with intact pedal pulses and normal ankle dorsiflexion. No edema. Const: Vital Signs, click to edit/add: Vital Signs - 24 hr 10/04/23 06:31 10/04/23 07:02 10/04/23 07:05 Temperature 98.1 F Pulse Rate 86 85 80 Respiratory Rate 16 16 16 Blood Pressure 127/78 113/77 113/77 Pulse Oximetry 90 94 92 Oxygen Delivery Me thod Room Air Nasal Cannula Nasal Cannula Oxygen Flow Rate 4 4 10/04/23 09:52 10/04/23 09:55 10/04/23 10:00 Temperature 96.7 F L Pulse Rate 72 76 86 Respiratory Rate 18 18 18 Blood Pressure 147/76 H 134/75 128/77 Pulse Oximetry 92 95 92 Oxygen Delivery Me thod Nasal Cannula Nasal Cannula Nasal Cannula Oxygen Flow Rate 3 3 3 10/04/23 10:05 10/04/23 10:10 10/04/23 10:15 Temperature 97.2 F L Pulse Rate 76 82 80 Respiratory Rate 18 14 18 Blood Pressure 125/75 133/74 126/71 Pulse Oximetry 97 96 99 Oxygen Delivery Me thod Nasal Cannula Nasal Cannula Nasal Cannula Oxygen Flow Rate 3 3 3 10/04/23 10:20 10/04/23 10:25 10/04/23 10:30 Temperature 97.2 F L Pulse Rate 87 70 78 Respiratory Rate 16 15 16 Blood Pressure 123/76 125/77 115/72 Pulse Oximetry 99 95 96 Oxygen Delivery Me thod Nasal Cannula Nasal Cannula Nasal Cannula Oxygen Flow Rate 3 3 3 10/04/23 10:35 10/04/23 10:40 10/04/23 10:50 Temperature 97.0 F L Pulse Rate 75 77 78 Respiratory Rate 18 18 16 Blood Pressure 104/68 105/67 102/67 Pulse Oximetry 97 93 88 Oxygen Delivery Me thod Nasal Cannula Nasal Cannula Nasal Cannula Oxygen Flow Rate 3 3 3 10/04/23 11:00 10/04/23 11:15 10/04/23 11:30 Temperature Pulse Rate 78 72 73 Respiratory Rate 16 16 16 Blood Pressure 102/66 95/64 103/66 Pulse Oximetry 91 94 91 Oxygen Delivery Me thod Nasal Cannula Nasal Cannula Nasal Cannula Oxygen Flow Rate 3 4 4 10/04/23 11:45 05/16/24 12:00 10/04/23 12:15 Temperature 97.0 F L Pulse Rate 73 74 73 Respiratory Rate 16 16 16 Blood Pressure 108/69 104/70 92/69 Pulse Oximetry 91 91 94 Oxygen Delivery Me thod Nasal Cannula Nasal Cannula Nasal Cannula Oxygen Flow Rate 4 4 4 10/04/23 12:30 10/04/23 13:00 10/04/23 13:31 Temperature 97.4 F L Pulse Rate 74 75 77 Respiratory Rate 16 16 20 Blood Pressure 108/70 100/57 L 97/72 Pulse Oximetry 97 97 95 Oxygen Delivery Me thod Nasal Cannula Nasal Cannula Nasal Cannula Oxygen Flow Rate 4 4 4 Documenting provider has reviewed patient's vital signs: yes Assessment and Plan Assessment and plan (1) Hypoxia: Problem comment: Multiple potential factors contributing to hypoxia. Primarily I believe this is sedation from surgery and opioid medications. Will need to be cautious with use of these. Secondarily he has underlying obstructive sleep apnea and may have some tolerance for hypoxia related to that. He was 90% on room air when he arrived for surgery today and was asymptomatic. He also has underlying lung disease of uncertain severity. Clinically he does not appear to be suffering from COPD exacerbation. Status: Acute (2) COPD (chronic obstructive pulmonary disease): Problem comment: Possibly related to adverse drug reaction to carbamazepine. Not obviously having an exacerbation at this time Status: Acute (3) CRISSY (obstructive sleep apnea): Problem comment: Longstanding managed with CPAP. Status: Acute (4) HTN (hypertension): Problem comment: Hold blood pressure medicines tomorrow. Resume on discharge. Status: Acute Plan Patient is admitted to the hospital for evaluation management of postoperative hypoxia. I expect his hypoxia to somewhat improved during his hospital stay. He will continue to need opioids which will cause some sedation and possibly respiratory depression going forward. I would like to see if he improves with his CPAP. Will use end-tidal CO2 monitoring if he is off CPAP. If he is having elevated CO2 levels I would be concerned that he is hypoventilating possibly with a component of central apnea exacerbated by opioids. Total Time Spent Total Time Spent: Total time spent today is 60 minutes, 40 minutes in coordination of care discussing with patient and other providers evaluation management of hypoxic respiratory failure, oxygen, CPAP, pain management
[2023-10-04] MEDS: CEFAZOLIN 2 GM in 0.9 % SODIUM CHLORIDE Mini-bag 100 ML IVPB (16:49)
--- NOTE | 2023-10-04 19:09 | PC.NURSE ---
End of shift [id number] - Pt alert, oriented, cooperative and talkative and pleasant. Up with walker/gait belt and standby assistance. Continent of bladder during shift, able to void. Tolerating regular diet and fluids. Pt arrived from PACU on 2L of O2 via nasal cannula. MD and RT consulted, RT suggested pt use home CPAP to assist with inspiration and maintain O2 saturation at 88% or higher. Pt tolerating CPAP, observed to sleep intermittently during shift. Pt reported pain in surgical hip as 5/10 which is reported to RN as tolerable. Medication given per MAR to maintain pt pain level at 5/10 or lower per pt request. Dressing CDI, ice on surgical site. Pt appears to be resting comfortably in bed with family at bedside at end of shift.
[2023-10-04] MEDS: SENNOSIDES 1 TAB TABLET 2 TAB PO (21:04)
[2023-10-05] MEDS: OXYCODONE 5 MG TABLET PO ×3 (00:03→10:44)
[2023-10-05] MEDS: CEFAZOLIN 2 GM in 0.9 % SODIUM CHLORIDE Mini-bag 100 ML IVPB (00:03)
[2023-10-05 03:00] VITALS: BP 110/70; PULSE 87; RESP 16; TEMP 36.7; O2SAT 91
[2023-10-05] MEDS: ACETAMINOPHEN 500 MG TABLET 1000 MG PO ×2 (03:48→10:43)
--- NOTE | 2023-10-05 06:17 | PC.NURSE ---
End of shift [id number]: Pleasant and cooperative with cares. Pain to left hip well managed with current medication regimen and ice. Transfers with SBA with walker and ambulates with gait belt. Denies any shortness of breath, O2 sats 87-93% on CPAP throughout the night. Dressing to left hip clean, dry and intact.
[2023-10-05 06:34] LABS: Potassium* 4.6 mmol/L (3.6-5.1)
[2023-10-05 06:36] LABS: Est. Creatinine Clearance* 77.06; Estimated Glomerular Filt Rate 84 ml/min
[2023-10-05 06:37] LABS: Blood Urea Nitrogen* 37 mg/dL (7-30)
--- NOTE | 2023-10-05 07:57 | PM.ORPN ---
Subjective Subjective Time Seen by Provider: 07:57 Date Seen: 10/05/23 Principal diagnosis: Left hip replacement Interval history: Jt is doing well this morning. That is his oxygen saturations are appropriate. He is on room air currently. He will be discharging today to home if he meets discharge criteria. He does have having postoperative knee pain on the left. Ortho Exam Narrative Exam Narrative: Alert and oriented x3. Patient is in no acute distress. Converses without labored breathing. Hearing is grossly intact. Ambulates with a walker. Peripheral neuropathy lower extremities, otherwise CMS intact. Dressing is clean, dry, and intact. Bilateral calves are soft and nontender. Minimal swelling about the hip. No erythema or warmth or sign of infection about the hip. No swelling or redness about the left knee. Const Vital Signs, click to edit/add: Vital Signs - 24 hr 10/04/23 09:52 10/04/23 09:55 10/04/23 10:00 Temperature 96.7 F L Pulse Rate 72 76 86 Pulse Rate [Pulse Oximeter] Respiratory Rate 18 18 18 Blood Pressure 147/76 H 134/75 128/77 Blood Pressure [Left Arm] Pulse Oximetry 92 95 92 Oxygen Delivery Method Nasal Cannula Nasal Cannula Nasal Cannula Oxygen Flow Rate 3 3 3 10/04/23 10:05 10/04/23 10:10 10/04/23 10:15 Temperature 97.2 F L Pulse Rate 76 82 80 Pulse Rate [Pulse Oximeter] Respiratory Rate 18 14 18 Blood Pressure 125/75 133/74 126/71 Blood Pressure [Left Arm] Pulse Oximetry 97 96 99 Oxygen Delivery Method Nasal Cannula Nasal Cannula Nasal Cannula Oxygen Flow Rate 3 3 3 10/04/23 10:20 10/04/23 10:25 10/04/23 10:30 Temperature 97.2 F L Pulse Rate 87 70 78 Pulse Rate [Pulse Oximeter] Respiratory Rate 16 15 16 Blood Pressure 123/76 125/77 115/72 Blood Pressure [Left Arm] Pulse Oximetry 99 95 96 Oxygen Delivery Method Nasal Cannula Nasal Cannula Nasal Cannula Oxygen Flow Rate 3 3 3 10/04/23 10:35 10/04/23 10:40 10/04/23 10:50 Temperature 97.0 F L Pulse Rate 75 77 78 Pulse Rate [Pulse Oximeter] Respiratory Rate 18 18 16 Blood Pressure 104/68 105/67 102/67 Blood Pressure [Left Arm] Pulse Oximetry 97 93 88 Oxygen Delivery Method Nasal Cannula Nasal Cannula Nasal Cannula Oxygen Flow Rate 3 3 3 10/04/23 11:00 10/04/23 11:15 10/04/23 11:30 Temperature Pulse Rate 78 72 73 Pulse Rate [Pulse Oximeter] Respiratory Rate 16 16 16 Blood Pressure 102/66 95/64 103/66 Blood Pressure [Left Arm] Pulse Oximetry 91 94 91 Oxygen Delivery Method Nasal Cannula Nasal Cannula Nasal Cannula Oxygen Flow Rate 3 4 4 10/04/23 11:45 10/04/23 12:00 10/04/23 12:15 Temperature 97.0 F L Pulse Rate 73 74 73 Pulse Rate [Pulse Oximeter] Respiratory Rate 16 16 16 Blood Pressure 108/69 104/70 92/69 Blood Pressure [Left Arm] Pulse Oximetry 91 91 94 Oxygen Delivery Method Nasal Cannula Nasal Cannula Nasal Cannula Oxygen Flow Rate 4 4 4 10/04/23 12:30 10/04/23 13:00 10/04/23 13:31 Temperature 97.4 F L Pulse Rate 74 75 77 Pulse Rate [Pulse Oximeter] Respiratory Rate 16 16 20 Blood Pressure 108/70 100/57 L 97/72 Blood Pressure [Left Arm] Pulse Oximetry 97 97 95 Oxygen Delivery Method Nasal Cannula Nasal Cannula Nasal Cannula Oxygen Flow Rate 4 4 4 10/04/23 14:00 10/04/23 15:00 10/04/23 16:00 Temperature 97.0 F L 97.5 F L 97.8 F Pulse Rate 81 82 78 Pulse Rate [Pulse Oximeter] Respiratory Rate 20 20 20 Blood Pressure 111/73 110/70 Blood Pressure [Left Arm] Pulse Oximetry 91 89 93 Oxygen Delivery Method Room Air CPAP CPAP Oxygen Flow Rate 10/04/23 17:58 10/04/23 19:40 10/04/23 21:04 Temperature 97.0 F L 97.9 F 97.9 F Pulse Rate 81 Pulse Rate [Pulse Oximeter] 82 Respiratory Rate 20 18 Blood Pressure 111/73 Blood Pressure [Left Arm] 108/67 Pulse Oximetry 91 91 Oxygen Delivery Method Nasal Cannula CPAP Oxygen Flow Rate 2 10/04/23 23:00 10/04/23 23:00 10/05/23 03:00 Temperature 97.8 F 98.1 F Pulse Rate Pulse Rate [Pulse Oximeter] 84 84 87 Respiratory Rate 15 15 16 Blood Pressure Blood Pressure [Left Arm] 117/65 110/70 Pulse Oximetry 92 91 Oxygen Delivery Method CPAP CPAP Oxygen Flow Rate Assessment and Plan Assessment and plan (1) Status post left hip replacement: Problem details: 10/04/2023 Status: Acute Assessment and Plan: Plan for discharge is today, and when they meets discharge criteria. DVT prophylaxis upon discharge Xarelto 10 mg daily for 5 days, then aspirin 81 mg twice daily for 30 days. Remove dressing 1 week. Observe wound and phone Orthopedics with any questions or concerns Use Ice on operative hip unrestricted. Return to clinic in 1 week with PA for a wound check Return to clinic in 6 weeks with surgeon Minimize narcotic use. Wean off and discontinue soon as possible. Activities as tolerated. No strenuous activity. Attend outpt PT Knee discomfort is common post hip replacement due to torque on the knee during surgery. This will resolve in time. I will recheck the knee next week when I see him in clinic.
[2023-10-05] MEDS: SENNOSIDES 1 TAB TABLET 2 TAB PO (08:04)
[2023-10-05] MEDS: RIVAROXABAN 10 MG TABLET PO (08:05)
[2023-10-05 08:35] VITALS: BP 130/68; PULSE 95; RESP 20; TEMP 37.3; O2SAT 94
--- NOTE | 2023-10-05 11:29 | PC.NURSE ---
Discharge - Pt alert, oriented, cooperative and pleasant. Up with standby assistance, walker/gait belt. Pt up with PT in halls to ambulate. Continent of bladder during shift. Tolerating RA, regular diet, fluids. Pt reported pain in surgical hip as 5/10, managed with medications per MAR with pt verbalizing improved comfort. Ice pack on site, dressing CDI. IV removed with catheter intact. Discharge education given to pt and spouse with verbalized understanding. Pt d/c'd to home with spouse via wheelchair at approximately 1120.
== END 2023-10-05 11:20 | disposition home or self-care (01) ==
LOC: OR 06:08 → MEDSURG 14:37
PROVIDERS: PCP Student in an Organized Health Care Education/Training Program; Visit Provider Orthopaedic Surgery
PROC: (CPT 27130; principal; 2023-10-04 07:15)
DX: M16.12 Unilateral primary osteoarthritis, left hip (principal); G89.18 Other acute postprocedural pain; G62.9 Polyneuropathy, unspecified; G47.33 Obstructive sleep apnea (adult) (pediatric); I10 Essential (primary) hypertension; R09.02 Hypoxemia; J44.9 Chronic obstructive pulmonary disease, unspecified
CPT/HCPCS: 27130; 01214; 36415; 64450; 73501; 76942; 82565; 84132; 84520; 86850; 86900; 86901; 97110; 97116; 97161; 97165; 97530; 97535; A9270; C1776; J0330; J0690; J1100; J1170; J2250; J2371; J2405; J2704; J2795; J3010; J3475; J3490; J7120

== ENCOUNTER 2023-11-07 10:30 | Outpatient (RCR) | payer MEDICARE, BC, OTHER, SELFPAY | END 2024-02-01 14:19 | disposition home or self-care (01) | PROVIDERS: PCP Student in an Organized Health Care Education/Training Program; Visit Provider Orthopaedic Surgery | DX: Z96.642 Presence of left artificial hip joint (principal); M25.552 Pain in left hip; Z74.09 Other reduced mobility; R26.9 Unspecified abnormalities of gait and mobility; M62.81 Muscle weakness (generalized); Z51.89 Encounter for other specified aftercare | CPT/HCPCS: 97110; 97161; 97164; 97535 ==